=== PATIENT | male | born 1980 | race Caucasian/White ===

== ENCOUNTER 2017-11-11 08:09 | Observation (INO) | payer OTHER ==
--- NOTE | 2017-11-11 08:30 | EDPHY ---
H & P Time Seen by Provider: 11/11/17 08:29 HPI/ROS: Chief complaint. Tongue swelling HPI. Patient is a 37-year-old male scheduled for tibial plateau surgery this morning. He fractured his tibia 3 date so ago while playing volleyball. He is in a splint. He is awaiting surgery today. He was prescribed tramadol for pain control. He took tramadol at 10:00 p.m. And 2:30 a.m.. He then awoke with tongue swelling. No trouble swallowing or breathing. He speaking normally. He has not taken any medication so far. He has not had similar symptoms before. Tramadol as a new medication for him ROS Constitutional. no fever/chills, no weakness Eyes. no problems with vision ENT. Tongue swelling Cardiovascular. no chest pain Respiratory. no shortness of breath, no cough Abdominal. no abdominal pain, no nausea/vomiting, no diarrhea . no problems urinating MS. no calf pain/swelling, no neck/back pain, no joint pain Skin. no rash Lymph. no swollen glands Neuro. no headache, no dizziness, no difficulty walking or with speech Past Medical/Surgical History: Healthy with recent tibia plateau fracture Social History: , nonsmoker, no alcohol Smoking Status: Current every day smoker Physical Exam: General Appearance: Alert pleasant well-developed male mild distress vital signs are stable Eyes: Pupils equal and round no pallor or injection. ENT, tongue is swollen diffusely. Pharynx however is normal without swelling. There is no stridor. Patient is handling secretions. Speech is normal Respiratory: There are no retractions, lungs are clear to auscultation. Cardiovascular: Regular rate and rhythm. Gastrointestinal: Abdomen is soft and nontender, no masses, bowel sounds normal. Neurological: Awake and alert, sensory and motor exams grossly normal. Skin: Warm and dry, no rashes. Musculoskeletal: Neck is supple nontender. Extremities symmetrical, full range of motion. Psychiatric: Patient is oriented X 3, there is no agitation. Constitutional: Initial Vital Signs Temperature (C) 36.8 C 11/11/17 08:13 Heart Rate 94 11/11/17 08:13 Respiratory Rate 18 11/11/17 08:13 Blood Pressure 113/75 11/11/17 08:13 O2 Sat (%) 98 11/11/17 08:13 O2 Delivery Mode Room Air Allergies/Adverse Reactions: tramadol Allergy (Severe, Verified 11/11/17 12:58) Swelling/neck,face,throat Home Medications: Medication Instructions Recorded NK [No Known Home Meds] 11/11/17 Medical Decision Making - Diagnostics Imaging Results: Imaging Impressions Fluoroscopy 11/11/17 00:00 Impression: Intraoperative fluoroscopy during left tibial plateau ORIF.. Procedures: IV normal saline. Benadryl IV ED Course/Re-evaluation: Re-evaluation at 9:00 a.m.. Patient is stable. Tongue is less swollen. Speaking in full sentences, handling secretions, no stridor As the patient is preop for surgery he will have the IV kept in place. He is observed in the emergency department until preop is ready for the patient. He is then transferred to pre surgery waiting for his leg surgery Differential Diagnosis: Apparently this is a reaction an allergy to tramadol. No airway embarrassment but significance tongue swelling which is now improving after treatment - Data Points Medications Given: Hydromorphone HCl (Dilaudid) 0.1 - 0.4 mg IVP Q10M PRN PRN Reason: PACU, PAIN Stop: 11/21/17 13:48 Last Admin: 11/11/17 14:37 Dose: 0.4 mg Discontinued Medications Bupivacaine HCl/Epinephrine Bitart (Bupivacaine/Epi) Confirm Administered Dose 30 ml .ROUTE .STK-MED ONE Stop: 11/11/17 11:12 Last Admin: 11/11/17 11:37 Dose: 30 ml Diphenhydramine HCl (Benadryl Injection) 25 mg IVP EDNOW ONE Stop: 11/11/17 08:43 Last Admin: 11/11/17 08:52 Dose: 25 mg Sodium Chloride (Ns) 1,000 mls @ 0 mls/hr IV EDNOW ONE; Wide Open PRN Reason: Protocol Stop: 11/11/17 08:43 Last Admin: 11/11/17 08:52 Dose: 1,000 mls Cefazolin Sodium (Cefazolin Syringe) 2 gm in 20 mls @ 200 mls/hr IVP ONCALL ONE Stop: 11/11/17 11:05 Last Admin: 11/11/17 11:06 Dose: 20 mls Departure - Departure Disposition: To OP Cath/Surgery Clinical Impression: Allergic reaction Qualifiers: Encounter type: initial encounter Qualified Code(s): T78.40XA - Allergy, unspecified, initial encounter Condition: Good
[2017-11-11] MEDS ORDERED: NS 1,000 ML IV ONE (08:42)
--- NOTE | 2017-11-11 10:29 | PDANEPAE ---
ANE History of Present Illness Left Tibial Plateau Fx ORIF ANE Past Medical History - Cardiovascular History Hx Hypertension: No Hx Arrhythmias: No - Pulmonary History Hx Oxygen in Use at Home: No Hx Sleep Apnea: No - Endocrine History Hx Diabetes: No ANE Review of Systems Review of systems is: negative Review of Systems: - Exercise capacity Exercise capacity: limited by disability ANE Patient History - Allergies Allergies/Adverse Reactions: No Known Allergies Allergy (Unverified 11/11/17 08:12) - Home Medications Home Medications: traMADol 11/11/17 [Last Taken Unknown] - NPO status NPO Since - Liquids (Date): 11/10/17 NPO Since - Liquids (Time): 19:00 NPO Since - Solids (Date): 11/10/17 NPO Since - Solids (Time): 19:00 - Smoking Hx Smoking Status: Current every day smoker ANE Labs/Vital Signs - Vital Signs Blood Pressure: 142/92 Heart Rate: 95 Respiratory Rate: 16 O2 Sat (%): 96 Height: 187.96 cm Weight: 99.79 kg ANE Physical Exam - Airway Neck exam: FROM Mallampati Score: Class 2 - Pulmonary Pulmonary: clear to auscultation - Cardiovascular Cardiovascular: regular rate and rhythym - ASA Status ASA Status: I, E ANE Anesthesia Plan Anesthesia Plan: general endotracheal anesthesia
[2017-11-11] MEDS ORDERED: HYDROmorphONE/DILAUDID 1 MG/ML INJ IVP PRN (10:30)
[2017-11-11] MEDS ORDERED: DEXAMETHASONE 4 MG/ML VIAL IVP PRN (10:30)
[2017-11-11] MEDS ORDERED: NALOXONE HCL 0.4 MG/ML INJ IVP PRN (10:30)
[2017-11-11] MEDS ORDERED: fentaNYL 100 MCG/2 ML INJ IVP PRN (10:30)
[2017-11-11] MEDS ORDERED: ONDANSETRON 4 MG/2 ML VIAL IVP PRN (10:30)
[2017-11-11] MEDS ORDERED: HYDROmorphONE/DILAUDID 2 MG/ML INJ ONE ×2 (10:38→13:38)
--- NOTE | 2017-11-11 10:38 | PDHPUP ---
<Julienne Jain S - Last Filed: 11/11/17 10:37> History & Physical Update H&P update statement: This history and physical update is based on an assessment of the patient which was completed after admission or registration (within 24 hours), but prior to the surgery/procedure. H&P update: H&P reviewed & patient examined, no change in patient's condition since H&P completed <Fidencio Garzon R - Last Filed: 11/11/17 13:18> History & Physical Update H&P update statement: This history and physical update is based on an assessment of the patient which was completed after admission or registration (within 24 hours), but prior to the surgery/procedure. H&P update: no change in patient's condition since H&P completed (Upon arrival for direct admission to OR for L knee surgery this AM, Elvin was found to have tongue swelling. Dr Santiago (Anesthesia) confirmed no airway involvement. Reaction believed to be related to Tramadol use o/n, now d/c'd. OK to proceed with surgery per Anesthesia and Ortho.), changes noted
[2017-11-11] MEDS ORDERED: ROCURONIUM 50 MG/5 ML VIAL ONE ×2 (10:39→11:00)
[2017-11-11] MEDS ORDERED: PROPOFOL 200 MG/20 ML VIAL ONE (10:40)
[2017-11-11] MEDS ORDERED: RANITIDINE 50 MG/2 ML VIAL ONE (10:41)
[2017-11-11] MEDS ORDERED: DEXAMETHASONE 4 MG/ML VIAL ONE ×2 (10:41)
[2017-11-11] MEDS ORDERED: ONDANSETRON 4 MG/2 ML VIAL ONE (10:42)
[2017-11-11] MEDS ORDERED: CEFAZOLIN 1 GM/DEXTROSE/50 ML BAG IV ONE (10:50)
[2017-11-11] MEDS ORDERED: ceFAZolin 2 GM/SWFI 2 GM/20 ML SYR IVP ONE (11:00)
[2017-11-11] MEDS ORDERED: BUPIVACAINE/EPI 0.5% 30 ML SDV ONE (11:11)
[2017-11-11] MEDS: HYDROmorphONE/DILAUDID 2 MG/ML INJ IVP PRN ×4 (13:42→14:37)
--- NOTE | 2017-11-11 13:51 | POSTOPPROG ---
Post Op Note Date of Operation: 11/11/17 Surgeon: Fidencio Garzon Farm Hand: Julienne Jain, NIKI Anesthesia: GET(General Endotracheal) Pre-op Diagnosis: Left leg tibial plateau fracture Post-op Diagnosis: Left leg tibial plateau fracture Indication: Left leg tibial plateau fracture Procedure: Left tibia ORIF of tibial plateau Inf/Abcess present in the surg proc area at time of surgery?: No Depth: Deep Incisional (Fascial) EBL: 100-500 Complications: None.
--- NOTE | 2017-11-11 14:11 | POSTANESTH ---
Post Anesthetic Evaluation Cardiovascular Status: Normal, Stable Respiratory Status: Other, See Comment Level of Consciousness/Mental Status: Mildly Sleepy, Arousable Pain Control: Adequate, Prn Tx Ordered Nausea/Vomiting Control: Adequate, Prn Tx Ordered (Pt given Tramadol in ED, complained of Tongue Swelling and recieved Benadryl. Subjectively he said it got better after the Benadryl, but upon emergency post Tibial Plateau Fx ORIF this phonation has worsened. Communicated with Dr. Garzon to have medicine follow with concern of Angioedema.)
[2017-11-11] MEDS ORDERED: ONDANSETRON DISINTEGRATING 4 MG TAB PO PRN (14:31)
[2017-11-11] MEDS ORDERED: ceFAZolin 2 GM/DEXTROSE 100 ML IV SCH (14:31)
[2017-11-11] MEDS ORDERED: LR 1,000 ML IV SCH (14:31)
--- NOTE | 2017-11-11 14:45 | GOP ---
[f rep st] OPERATIVE REPORT DATE OF OPERATION: 11/11/2017 SURGEON: Fidencio Garzon MD SHREDDING MACHINE OPERATOR: DIANA Jamil. ANESTHESIA: General. ANESTHESIOLOGIST: Dr. Santiago. PREOPERATIVE DIAGNOSIS: Closed left tibial plateau fracture, Schatzker 2. POSTOPERATIVE DIAGNOSIS: Closed left tibial plateau fracture, Schatzker 2. PROCEDURE PERFORMED: Open reduction, internal fixation of left tibial plateau fracture with sub meniscal arthrotomy. FINDINGS: Excellent tissue and bone quality. As listed above, Schatzker 2 split depression fracture with depression of the anterior aspect of the lateral tibial plateau articular surface. This depression sat directly over a split of the lateral condyle. The split portion of the fracture was minimally displaced. Appropriate reduction was achieved at the articular surface with direct visualization after sub meniscal arthrotomy. Please note, there was abundant hemarthrosis that was irrigated and evacuated during surgery. SPECIMENS: None. ESTIMATED BLOOD LOSS: 20 cc. INDICATIONS: This is a 37-year-old active male who injured his left knee while playing volleyball on , November 08, 2017. The patient was seen at our Urgent Care, was found to have the above-listed injury after being seen at the [facility], where he received both plain radiographs as well as CT scan. There was 5-6 mm depression of the anterolateral tibial plateau with a split through the lateral condyle and some extension into the tibial eminences. Due to the significant depression, the patient's young age, as well as overall findings, surgery was recommended. The risks, benefits, and alternatives were described to the patient. All of his questions were answered prior to surgery. He provided a signed and witnessed informed consent, which placed in his chart. See history and physical for additional information. DESCRIPTION OF PROCEDURE: The patient was identified in the preoperative holding area, and his left knee was signed and designated as the operative site. The patient was confirmed in right lower extremity ANITA hose and SCDs. He was treated with 2 g IV prophylactic cefazolin per protocol. He was taken back to the operating room, placed supine on the OR table, and general anesthesia was obtained. Right lower extremity was placed in a well-padded OR table. Left lower extremity was wrapped proximally with cast padding and a nonsterile tourniquet and then prepped and draped in the usual sterile manner. Large C-arm was also utilized in a sterile manner with standard prep for imaging at the fracture site as well as hardware positioning. Standard lazy-S lateral incision was utilized with horizontal portion of the S over the lateral joint line. Total length of the incision was approximately 12 cm. Full-thickness dermal incision was made with a #10 blade after Esmarch exsanguination and inflation of the tourniquet to 250 mmHg. Careful dissection was taken down through the subcutaneous fat. The IT band was identified and divided in parallel with its fibers. This was then opened and retracted with standard Norberto rake retractors. A sub meniscal arthrotomy was performed, kept mostly anteriorly, where the fracture was found to be most depressed on CT scan. Great care was taken to protect the intermeniscal ligament with this sub meniscal arthrotomy along the anterior horn and anterior aspect of the body of the lateral meniscus. #1 Ethibond sutures were placed within the soft tissues adjacent to the lateral meniscus in order to provide elevation and exposure at the fracture site as well as evacuate hematoma. With irrigation as well as abundant suction, approximately 80 cc of hemarthrosis was evacuated from the knee. Once this was completed, better visualization of the joint surface was obtained. There was obvious trauma with hemorrhage and depression at the anterior tibial plateau articular surface. Cartilage surface was intact. Below the depression, where there was obvious fracture line, subperiosteal dissection was utilized only at the level of the fracture site to enter the fracture. A curette and rongeur were used to remove all of the interposed hematoma, and a small rongeur was used to facilitate this further. All soft tissues were removed from interposition within the fracture site. Care was taken to only dissect along the anterior tibial crest and avoid any damage to the extensor mechanism. Once the fracture line was identified inferiorly and found to be hinged without any significant displacement, no further dissection was necessary inferiorly. Posteriorly and at the level of the joint line, careful dissection was only used to a minimum along the lateral plateau. This was for eventual placement of the plate beneath the IT band. Once this was completed, a Calderon elevator was used to carefully open the fracture site and, using a small bone tamp, the depressed portion of the fracture was elevated. Once this was elevated, a single K-wire was used to place directly under the elevated portion of the fracture, and this held the position of the fracture well. Next, a combination of both cancellous allograft bone chips as well as Norian calcium phosphate bone cement was used to backfill the defect and bone graft underneath the fracture site. Once this was in position, the appropriate plate was positioned over the lateral tibial plateau and additional K-wires were placed through the plate. Once the plate was confirmed in the appropriate position on both AP and lateral views, a large periarticular reduction tenaculum was used to compress the fracture site. The clamp was placed through a small stab incision medially along the medial tibial plateau. This incision was made with a #15 blade, and careful dissection was taken down through the subcutaneous fat with a small mosquito clamp. Once bone was palpated, the tip of the reduction tenaculum was placed directly on this medial plateau, and then compression was achieved through the plate and across the fracture site. Very nice closure at the fracture site, as well as reduction at the articular surface , was confirmed on both AP and lateral views. Once this was completed, fixation of the plate to bone was achieved with multiple screws. Initially, with a clamp on the inferior aspect of the plate, a single conical screw without locking threads was used to place a partially threaded screw across the fracture site and achieve excellent compression using the screw. Next, the plate was fixated down to bone using the oval hole distally. This was a bicortical nonlocking screw. Once this was in position, additional images were again taken to confirm fracture reduction and positioning of the hardware. Three additional horizontal locking screws were then placed in a subarticular position, all in locking manner, in order to achieve a rafter effect. The most anterior 2 screws were placed in a locking manner directly under the depressed fracture site. Excellent fixation and/or a buttress effect was achieved. Distally, 2 additional locking screws were placed within the metaphyseal portion of the plate and tibial plateau. Again, excellent fixation was achieved and locking engagement confirmed. Bone quality was excellent throughout the plateau, other than at the level of the fracture site. Once all screws were in place, finalized images were taken. Via the sub meniscal arthrotomy, again, direct visualization of the fracture site and depressed segment was confirmed to be elevated in the appropriate position. Once this work was completed, the knee was copiously irrigated, including the articular space. Closure was then begun. Initial closure was with primary focus on repairing the sub meniscal arthrotomy. This was repaired with multiple #1 Ethibond sutures with some of these placed through the eyelets of the plate. Once this was completed, the IT band was closed with multiple #1 Ethibond sutures. Very nice coverage of the plate was achieved. 0 Vicryl was used to reapproximate the deep fat layer. 2- 0 Vicryl was used to reapproximate the deep dermal layer. Finally, the skin was closed with magan. Tourniquet was dropped prior to closure of the IT band , and excellent hemostasis was confirmed throughout. Sterile postoperative surgical dressings were applied. ANITA hose was applied. The knee was placed in hinged knee brace, locked in full extension. The anesthesia service then took over to wake patient up. TOURNIQUET TIME: 72 minutes at 250 mmHg. DRAINS: None. IMPLANTS: Synthes small fragment 3.5 mm LCP periarticular locking plate (4 hole ). All screws were placed from the same set, including a combination of both locking and nonlocking screws. COMPLICATIONS: None. DISPOSITION: The patient was extubated and transferred to the PACU in stable condition. He will be admitted overnight for IV antibiotics as well as PT and OT in the morning and anticipate discharge tomorrow. Begin enoxaparin 40 mg subcu b.i.d. for a total of 14 days tomorrow. Strict nonweightbearing, left lower extremity. See additional orders for information. I will see him in clinic, 10-14 days, for first postop check with new x-rays and removal of magan. /[id number]/MODL MTDD
[2017-11-11] MEDS ORDERED: MAGNESIUM HYDROXIDE 30 ML UDCUP PO PRN (16:34)
[2017-11-11] MEDS ORDERED: LACTULOSE 20 GM/30 ML UDCUP PO PRN (16:34)
[2017-11-11] MEDS: POLYETHYLENE GLYCOL 3350 17 GM PKT PO PRN (16:55)
[2017-11-11] MEDS: oxyCODONE IR 5 MG TAB PO PRN ×2 (16:55→21:02)
[2017-11-11] MEDS: SENNOSIDES 1 TAB PO SCH (19:48)
[2017-11-11] MEDS: ceFAZolin 2 GM/SWFI 2 GM/20 ML SYR IVP SCH (19:48)
[2017-11-12] MEDS: oxyCODONE IR 5 MG TAB PO PRN ×3 (02:05→12:15)
[2017-11-12] MEDS: ceFAZolin 2 GM/SWFI 2 GM/20 ML SYR IVP SCH (04:26)
[2017-11-12 04:38] VITALS: BP 130/79
[2017-11-12] MEDS ORDERED: ENOXAPARIN 40 MG/0.4 ML SYR SC SCH (09:00)
[2017-11-12] MEDS: SENNOSIDES 1 TAB PO SCH (09:54)
[2017-11-12] MEDS: POLYETHYLENE GLYCOL 3350 17 GM PKT PO PRN (09:57)
--- NOTE | 2017-11-12 12:06 | SOAPPROG ---
SOAP Progress Note Assessment/Plan: Assessment: POD #1 left tibial plateau fx ORIF: overall doing well, pain well controlled. Has not yet been up with PT/OT Plan: -DVT Prophylaxis: Begin lovenox injections today POD #1 x2 weeks post-op. SCDs. IS. ANITA dempsey. -Dressing: maintain dry dressing. Not to remove without d/w our office first. Notify if abnormal bleeding/oozing/discharge, change in heat/color around wound site. -PT/OT: strict NWB to left lower extremity. Can unlock brace for AROM of left lower extremity. -X-rays: still pending, will call floor nurse to discuss. Will need tib/fib views of left knee before discharge occurs. -F/U in our office for scheduled post-op appts. -Pain control: has pain Rx I wrote at pre-op. -Brace: maintain. -Can D/C once receive xrays, PT/OT and case management clearance. -Advised patient to watch for fever, chills, NVD, change in heat/color of extremity or around wound site, cough, congestion, chest pain, SOB, dyspnea, worsening numbness/tingling and to seek immediate medical attn if seen. Patient seen and discussed in conjunction with Dr. Garzon. 11/12/17 11:59 Subjective: Sitting up in bed, able to respond appropriately to questions, in room. Pain well controlled. Has passed flatus, no BM. Denies fever, chills, NVD, change in heat/color of extremity or around wound site, cough, congestion, chest pain, SOB, dyspnea, worsening numbness/tingling, change in distal ROM. Objective: Vital Signs Temp Pulse Resp BP Pulse Ox 36.8 C 74 16 130/79 H 94 11/12/17 04:37 11/12/17 04:37 11/12/17 04:37 11/12/17 04:37 11/12/17 04:37 11/11/17 11/12/17 11/13/17 05:59 05:59 05:59 Intake Total 1020 1680 Output Total 2800 350 Balance -1780 1330 Alert and oriented. Able to respond appropriately to questions. Non-labored breathing. No diaphoresis. Abdomen soft/NT. M/S: Left knee bandaged and locked in extension with no abnormal bleeding/oozing/ discharge, change in heat/color of extremity or around wound sites. ANITA dempsey present b/l with SCDs on non-op leg on and pumping. DNVI b/l in lower extremities with gross sensation intact and no focal deficits. Calves soft/ supple and NTTP b/l with negative b/l Homans. Passive dorsiflexion/ plantarflexion of great toe in all directions produces no reproducible lower compartment pain. Brisk cap refill b/l. Strength: 5/5 foot and ankle b/l. Unable to full assess knee or hip strength. X-rays: not yet available. - Pending Discharge Pending Discharge Within 24 Hours: Yes Pending Discharge Date: 11/13/17 (Needs post-op x-rays of left tib/fib as well as PT/OT, case management clearance before I will clear for discharge. ) Pending Discharge Time: 11:00 ICD10 Worksheet Patient Problems: Problems Problem Status Onset Allergic reaction Acute
--- NOTE | 2017-11-12 15:03 | ASMTCMCOM ---
CM Note CM Note Notes: OT rec home, PT rec home/outpatient. Pt medically stable for d/c, no CM d/c needs identified. Date Signed: 11/12/2017 03:02 PM Electronically Signed By:NERI Norwood
[2017-11-12] MEDS ORDERED: CYCLOBENZAPRINE 10 MG TAB PO SCH (21:00)
== END 2017-11-12 15:40 | disposition home or self-care (01) ==
LOC: FSGY 10:12 → F3N 11:08
PROVIDERS: ADMIT Orthopaedic Surgery; ATTEND Orthopaedic Surgery
PROC: 0QSH04Z Reposition Left Tibia with Internal Fixation Device, Open Approach (ICD-10-PCS; principal; 2017-11-11 10:50)
DX: S82.142A Displaced bicondylar fracture of left tibia, initial encounter for closed fracture (principal); T40.4X5A Adverse effect of other synthetic narcotics, initial encounter; Y93.68 Activity, volleyball (beach) (court); Z88.6 Allergy status to analgesic agent
CPT/HCPCS: 27536; 73560; 76001; 97161; 97166; 97535; G0378; 96374; C1713; C1762; J0690; J1100; J1170; J1200; J1650; J2405; J2704; J2780